=== PATIENT | male | born 1955 | race Two or more races ===

== ENCOUNTER 2023-09-08 16:14 | Inpatient (IN) | payer OTHER ==
[~2023-09-08] VITALS: Ht 165.1 cm; Wt 91.6 kg
[2023-09-08] MEDS ORDERED: GLUCOTROL XL5 MG (16:31)
[2023-09-08] MEDS ORDERED: HYZAAR 100-251 EACH (16:31)
[2023-09-08] MEDS ORDERED: FARXIGA10 MG (16:32)
[2023-09-08] MEDS ORDERED: PROTECT IRON T1 EACH (16:33)
[2023-09-08 17:48] LABS: HEMATOCRIT 25.8 % (39.0-48.0); HEMOGLOBIN 8.9 g/dL (13-16.00); MEAN CELL VOLUME 103.3 fL (80.0-100.00); MEAN CORPUSCULAR HEMOGLOBIN 35.7 pg (27.00-32.0); MEAN CORPUSCULAR HGB CONC 34.5 g/dl (32.0-36.0); PLATELET COUNT 407 K/uL (150-450); RED BLOOD COUNT 2.49 M/uL (4.00-6.00); RED CELL DISTRIBUTION WIDTH 13.1 % (11.5-14.5)
[2023-09-08 18:08] LABS: ALBUMIN 3.2 gm/dL (3.4-5.0); BILIRUBIN TOTAL 0.56 mg/dL (0.3-1.2); CALCIUM 9.1 mg/dL (8.5-10.1); CREATININE SERUM 2.56 mg/dL (0.70-1.30); GFR 24.97; GLOBULINA 3.9 G/DL (2.4-3.5); POTASSIUM 4.13 mEq/L (3.5-5.1); TOTAL PROTEIN 7.1 gm/dL (6.4-8.2)
[2023-09-08 20:18] LABS: PH,URINE 5.5 (5.0-8.0); URINE APPEARANCE Clear; URINE BILIRRUBIN Negative (NEGATIVE); URINE BLOOD Negative; URINE COLOR Dark Yellow; URINE LEUKOCYTE Trace; URINE NITRATE Negative; URINE PROTEIN Trace (NEGATIVE)
[2023-09-08 20:19] LABS: URINE EPITHELIAL CELLS 7.5 uL (0.0-38.8); URINE WBC 17.1 uL (0.0-23.2)
[2023-09-08 20:23] LABS: URINE GLUCOSE 100 MG/DL (NEGATIVE); URINE RBC 1.8 uL (0.0-20.8)
[2023-09-08 22:45] LABS: ABG PH 7.398 (7.35-7.45); ABG PO2 127.2 mmHg (80-100); ABG pCO2 32.6 mmHg (35-45); BASE EXCESS -4.1 mmol/l; BICARBONATE 19.7 mmol/l (23-25); SaO2 98.8 %; Tco2 20.7 mmol/l
[2023-09-08 22:46] LABS: allen test SATISFACTORY; o2 28 %; puncture site RADIAL RIGHT
[2023-09-08 23:41] LABS: INR 1.13; PARTIAL THROMBOPLASTIN TIME 23.8 SECONDS (22.0-34.0); PROTHROMBIN TIME 11.8 SECONDS (9.0-11.5)
[2023-09-08 23:44] LABS: MAGNESIUM 1.6 mg/dL (1.8-2.4); PHOSPHOROUS 4.3 mg/dL (2.5-4.9)
[2023-09-09 00:34] LABS: CHOL HDL RATIO 6.2 (0-5.0); TSH 1.02 uIU/mL (0.358-3.74)
[2023-09-09] MEDS ORDERED: DIVALPROEX SOD500 MG (15:14)
[2023-09-09] MEDS ORDERED: METOPROLOL TAR100 MG (15:15)
[2023-09-09] MEDS ORDERED: ST. JOSEPH ASPI81 M2 (15:15)
[2023-09-09] MEDS ORDERED: METFORMIN HCL1000 M3 (15:15)
[2023-09-09] MEDS ORDERED: ATORVASTATIN CA40 MG (15:15)
[2023-09-09 17:29] LABS: FERRITIN 190.5 NG/ML (26-388)
[2023-09-10 11:01] LABS: HEMATOCRIT 24.8 % (39.0-48.0); MEAN CELL VOLUME 103.1 fL (80.0-100.00); MEAN CORPUSCULAR HEMOGLOBIN 35.4 pg (27.00-32.0); MEAN CORPUSCULAR HGB CONC 34.4 g/dl (32.0-36.0); PLATELET COUNT 380 K/uL (150-450); RED CELL DISTRIBUTION WIDTH 13.8 % (11.5-14.5)
[2023-09-10 11:02] LABS: HEMOGLOBIN 8.5 g/dL (13-16.00)
[2023-09-10 11:36] LABS: ALBUMIN 3.2 gm/dL (3.4-5.0); BILIRUBIN TOTAL 0.72 mg/dL (0.3-1.2); CALCIUM 9.1 mg/dL (8.5-10.1); CREATININE SERUM 1.55 mg/dL (0.70-1.30); GFR 44.55; GLOBULINA 3.5 G/DL (2.4-3.5); POTASSIUM 3.4 mEq/L (3.5-5.1); TOTAL PROTEIN 6.7 gm/dL (6.4-8.2)
[2023-09-11 20:23] LABS: FECAL LEUKOCYTES NEGATIVE (NEGATIVE); ob POSITIVE (NEGATIVE)
[2023-09-12 07:49] LABS: URINE PROT QUANT 24HR 21.3 MG/DL
[2023-09-12 08:02] LABS: URINE PROT QUANT 24 HR 223.65 MG/24HR (42-225)
[2023-09-12 08:33] LABS: CREATININE SERUM 1.38 mg/dL (0.8-1.3)
[2023-09-13 08:21] LABS: PLATELET ESTIMATE NORMAL (NORMAL)
== END 2023-09-12 19:17 | disposition home or self-care (01) | DRG 683 ==
LOC: ER 16:14 → MEDJ 21:57 → MEDI 09-09 15:37
PROVIDERS: General Practice; Internal Medicine Hematology & Oncology; Specialist/Technologist, Other Nephrology; ADMIT Specialist; ATTEND Specialist
PROC: BT43ZZZ Ultrasonography of Bilateral Kidneys (ICD-10-PCS; principal; 2023-09-08)
PROC: BW21ZZZ Computerized Tomography (CT Scan) of Abdomen and Pelvis (ICD-10-PCS; 2023-09-08)
PROC: B246ZZZ Ultrasonography of Right and Left Heart (ICD-10-PCS; 2023-09-08)
PROC: 4A12X4Z Monitoring of Cardiac Electrical Activity, External Approach (ICD-10-PCS; 2023-09-09)
DX: N17.9 Acute kidney failure, unspecified (principal); I13.0 Hypertensive heart and chronic kidney disease with heart failure and stage 1 through stage 4 chronic kidney disease, or unspecified chronic kidney disease; E86.0 Dehydration; I95.9 Hypotension, unspecified; N18.9 Chronic kidney disease, unspecified; I50.9 Heart failure, unspecified; D53.9 Nutritional anemia, unspecified; D52.9 Folate deficiency anemia, unspecified; Z20.822 Contact with and (suspected) exposure to COVID-19

== ENCOUNTER 2023-09-26 08:10 | Outpatient (CLI) | payer OTHER ==
[~2023-09-26 08:10] MED LIST: ATORVASTATIN CA40 MG; DIVALPROEX SOD500 MG; FARXIGA10 MG; GLUCOTROL XL5 MG; HYZAAR 100-251 EACH; METFORMIN HCL1000 M3; METOPROLOL TAR100 MG; PROTECT IRON T1 EACH; ST. JOSEPH ASPI81 M2
== END 2023-09-26 08:18 | disposition home or self-care (01) ==
LOC: RX STUDY 08:10
PROVIDERS: ATTEND Specialist
DX: R13.10 Dysphagia, unspecified (principal)